=== PATIENT | female | born 1935 | race Caucasian/White ===

== ENCOUNTER 2019-02-15 08:17 | Inpatient (IN) ==
[2019-02-15] MEDS ORDERED: Ibuprofen 800 MG TABLET PO PRN (20:47)
[2019-02-15] MEDS ORDERED: Nitroglycerin 0.4 MG TAB.SUBL SL PRN (20:47)
[2019-02-15] MEDS ORDERED: Mag Hydrox/Al Hydrox/Simeth 30 ML UDC PO PRN (20:50)
[2019-02-15] MEDS ORDERED: Ondansetron ODT 4 MG TAB.RAPDIS SL PRN (20:52)
[2019-02-15] MEDS ORDERED: Lactulose Oral Soln 20 GM/30 ML UDC PO PRN (20:53)
[2019-02-15] MEDS: ALPRAZolam 1 MG TABLET PO PRN (22:52)
[2019-02-16 05:51] LABS: Basophils # 0.1 K/mcL (0.0-0.2); Basophils % 0.5 %; Eosinophils # 0.2 K/mcL (0.0-0.6); Hematocrit 34.7 % (35.3-44.9); Hemoglobin 11.1 g/dL (11.5-15.4); Immature Granulocytes % 9.9 % (0-4); Lymphocytes # 2.3 K/mcL (0.6-4.6); Lymphocytes % 14.5 %; Mean Corpuscular Hemoglobin 29.4 pg (28.0-33.3); Mean Platelet Volume 10.2 fL (9.4-12.4); Monocytes # 1.1 K/mcL (0.0-1.3); Neutrophils # 10.7 K/mcL (1.6-8.9); Platelet Count 211 K/mcL (140-400); Red Blood Count 3.77 M/mcL (3.82-4.97); Red Cell Distribution Width 13.5 % (11.5-14.5); Segmented Neutrophils % 67.1 %
[2019-02-16] MEDS: *HR* Enoxaparin 40 MG/0.4 ML SYRINGE SQ SCH (06:03)
[2019-02-16 06:05] LABS: Alanine Aminotransferase 28 Units/L (7-52); Aspartate Amino Transferase 29 Units/L (13-39); Bilirubin,Total 0.3 mg/dL (0.3-1.0); Carbon Dioxide 32 mEq/L (23-29); Glucose 87 mg/dL (70-105); Magnesium 1.8 mg/dL (1.6-2.6); Potassium 2.9 mEq/L (3.5-5.1); Sodium 143 mEq/L (136-145)
[2019-02-16 06:08] LABS: Albumin 2.9 g/dL (3.5-5.7); Albumin/Globulin Ratio 1.5 (1.1-2.2); Alkaline Phosphatase 72 Units/L (34-104); BUN/Creatinine Ratio 16 (6-26); Blood Urea Nitrogen 14 mg/dL (8-23); Calcium 8.6 mg/dL (8.6-10.3); Chloride 106 mEq/L (98-107); Globulin 1.9 g/dL (2.4-3.5); Osmolality,Calculated 296 (280-300); Total Protein 4.8 g/dL (6.4-8.9); eGFR For African Americans > 60 (> 60); eGFR For Non-African Americans > 60 (> 60)
[2019-02-16] MEDS: Cholecalciferol (D-3) 1,000 UNIT (25MCG) TABLET PO SCH (08:09)
[2019-02-16] MEDS: Multivit/Ca/Min/Fe/FA 1 TAB TABLET PO SCH (08:09)
[2019-02-16] MEDS: predniSONE 20 MG TABLET PO SCH (08:10)
[2019-02-16] MEDS: Spironolactone 25 MG TABLET PO SCH (08:10)
[2019-02-16] MEDS: (Fluticasone Furoate [Arnuity Ellipta] 1 PUFF) IH SCH (08:10)
[2019-02-16] MEDS: (Tiotropium Br/Olodaterol Hcl [Stiolto Respimat Inhal) IH SCH (08:10)
[2019-02-16] MEDS: ALPRAZolam 1 MG TABLET PO PRN ×2 (08:24→22:26)
[2019-02-16] MEDS ORDERED: 0.9 % Sodium Chloride 250 ML ONE (08:43)
[2019-02-16] MEDS ORDERED: 0.9 % Sodium Chloride 500 ML ONE (11:16)
--- NOTE | 2019-02-16 12:59 | Internal Med History&Physical ---
Date of Encounter: 02/16/19 Time of Encounter: 11:00 Assessment and Plan (1) Weakness Current visit: Yes Status: Acute This is apparently worse by her recent pneumonia and infection as well as time spent in ICU. She will receive therapies and assessments to return to her normal function. (2) CHF (congestive heart failure) Current visit: No Status: Acute This is apparently well compensated. Qualifiers: Heart failure type: diastolic Heart failure chronicity: chronic Qualified Code(s): I50.32 - Chronic diastolic (congestive) heart failure (3) Obstructive sleep apnea Current visit: Yes Status: Acute This is a presumptive diagnosis and will need a formal polysomnogram after discharge. (4) COPD (chronic obstructive pulmonary disease) with emphysema Current visit: Yes Status: Acute As above, she has been oxygen dependent. She has used more oxygen at home and prescribed (3.5 versus 2 L). She is on a steroid dose of 40 mg prednisone daily but we will see if we can find out what her weaning plan is to be. Qualifiers: Emphysema type: unspecified Qualified Code(s): J43.9 - Emphysema, unspecified Internal Medicine - H&P: HPI Admitted From: Hospital to Hospital Transfer Plans for Post Hospital Care: Home History of present illness: Ms. Streeter is a 83 year old female with a history of heart failure, COPD on chronic oxygen, who developed respiratory symptoms and was admitted with COPD exacerbation, pneumonia, septicemia. She was in ICU at [facility] and did better after antibiotics and steroids. She is now feeling weak in his brought here for strengthening and therapy to return to function. Allergies include amoxicillin, ciprofloxacin, clavulanic acid, hydrocodone. She has a history of COPD and CHF as well has apparent sleep apnea. She uses oxygen at 3.5 L, nightly, at home. She is followed by Dr. alfaro, apparently, a director dermatology. She also has a history of coronary disease with stent placements 2003. She had an DC in 2009 and subsequent stent placement at that time. Her most recent stress test was about 2 years ago and was normal. She denies recent chest pain or pressure. She is followed by a plant associate, Dr. Avalos, in [place]. She apparently had oxygen monitoring which showed desaturation, while hospitalized. She was told that she needs to have a formal sleep study soon. She had an echocardiogram while at [facility] and the ejection f raction was normal. Past surgeries have included bilateral cataract extractions, cholecystectomy, h ysterectomy but not BSO, right total knee replacement by Dr. Parra. She is edentulous but wears only upper plate dentures. She has dry skin. She has always "had to watch my swallowing." She is not able to further describe. She has had some abdominal tenderness since being hospitalized but denies constipation. She has occasionally had diarrhea, since receiving antibiotics but this is not consistent. No melena or hematochezia. She has remote urinary tract infections but none recently. 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 She has chronic knee problems after her surgery, as well. This is affecting her gait. She has a history of anxiety disorder to the point that she frequently has tremors which are related to anxiety. She smoked for approximately 40 years, 1 pack per day but stopped in 2011. She drank mixed drinks occasionally until about 5 years ago. She is for 5 years and lives with her daughter. 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 Patient has no complaint of chest discomfort, dyspnea, orthopnea, breathing problems, palpitations, nausea or vomiting, constipation or diarrhea, other changes in bowel habits, heartburn, difficulty with urination, kidney problems or kidney stones, fevers chills or sweats, rash or itching, seizures, headache or lightheadedness, heat or cold intolerance, blood problems or anemia, or other new complaints, except as mentioned above. Review of systems is otherwise negative. Past Med Surg Social Fam HX - Past Medical History Medical history: arthritis, CHF, COPD, DVT, GERD, hyperlipidemia, myocardial infarction Additional medical history: 2 stents Psychiatric history: anxiety, depression - Past Surgical History Surgical History: cholecystectomy, hysterectomy, knee replacement Additional surgical history: tubal, right knee replacement - Social History Smoking Status: Former smoker Smokeless Tobacco Status: No Alcohol use: none Drug use: none - Family History Father Living Status: Hx Family Cardiac Disorders: Yes Mother Living Status: Hx Family Cardiac Disorders: Yes Brother Living Status: Still Living Hx Family Cardiac Disorders: Yes Internal Medicine - H&P: Meds ALPRAZolam [Xanax 1 MG Tablet] 1 mg PO BID PRN 02/10/19 [History] Albuterol Sulfate [Ventolin Hfa] 2 puff IH Q4H PRN 02/10/19 [History] Atorvastatin Calcium 80 mg PO DAILY 02/10/19 [History] Cholecalciferol (D-3) [Vitamin D] 2,000 unit PO DAILY 02/10/19 [History] Duloxetine HCl [Cymbalta] 60 mg PO BID 02/10/19 [History] Fluticasone Furoate [Arnuity Ellipta] 1 puff IH DAILY 02/10/19 [History] Ibuprofen [Ibu] 800 mg PO TID PRN 02/10/19 [History] Lactulose 30 ml PO BID PRN 02/10/19 [History] Metoprolol [Lopressor] 25 mg PO BID 02/10/19 [History] Montelukast [Singulair] 10 mg PO DAILY 02/10/19 [History] Multivitamin [Daily Multiple Vitamin] 1 each PO DAILY 02/10/19 [History] Nitroglycerin [Nitrostat] 0.4 mg SL Q5MIN PRN 02/10/19 [History] Omeprazole [PriLOSEC] 20 mg PO DAILY 02/10/19 [History] Spironolactone [Aldactone] 25 mg PO DAILY 02/10/19 [History] Tiotropium Br/Olodaterol HCl [Stiolto Respimat Inhal [place]] 2 puff IH DAILY 02/10/19 [History] predniSONE [PredniSONE] 40 mg PO DAILY 7 Days #14 tablet 02/15/19 [Rx] Allergy/AdvReac Type Severity Reaction Status Date / Time acetaminophen [From Vicodin] AdvReac Vomiting Verified 02/10/19 22:21 Amoxicillin [From Augmentin] AdvReac Abdominal Verified 02/10/19 22:21 Pain ciprofloxacin AdvReac Vomiting Verified 02/10/19 22:21 clavulanic acid AdvReac Abdominal Verified 02/10/19 22:21 [From Augmentin] Pain hydrocodone [From Vicodin] AdvReac Vomiting Verified 02/10/19 22:21 - Constitutional Vitals: Temp Pulse Resp BP Pulse Ox 98.2 F 80 17 125/76 94 02/16/19 08:24 02/16/19 08:24 02/16/19 08:24 02/16/19 08:24 02/16/19 08:40 Exam: Examination: (Except as mentioned above): General: In no apparent distress, alert and oriented 3. Head: Atraumatic and normocephalic. Eyes: Extraocular muscles are intact, pupils equal round and reactive to light and accommodation. Sclerae anicteric. Ears: External ears are normal to inspection and hearing is grossly normal. Nose: Patent without lesion noted. Mouth: No intraoral lesions seen. Edentulous with upper plate dentures in place. Neck: Supple with trachea midline. There is no thyromegaly or adenopathy and carotids are 2+ without bruit heard. Respiratory: No use of accessory muscles. Lungs are clear throughout. Normal airflow. Cardiovascular: Regular rate and rhythm without murmur appreciated. Abdomen: Bowel sounds are normal. No hepatosplenomegaly masses but there is mild diffuse tenderness without guarding or rebound. Obese and therefore difficult to palpate deeply. Extremities: No cyanosis clubbing or edema. Neurological: A and O 3. Cranial nerves II through XII are intact. No focal deficits and no abnormal movements or postures. Skin: Warm and non-diaphoretic with no lesions noted. Breasts, pelvic and rectal: Not examined. Internal Med - H&P Results - Labs CBC & Chem 7: 02/16/19 05:15 02/16/19 05:15 Labs: Short CBC 02/16/19 Range/Units 05:15 WBC 16.0 H (4.3-11.1) K/mcL Hgb 11.1 L (11.5-15.4) g/dL Hct 34.7 L (35.3-44.9) % Plt Count 211 (140-400) K/mcL Neutrophils # 10.7 H (1.6-8.9) K/mcL BMP 02/16/19 05:15 Sodium 143 Potassium 2.9 L Chloride 106 Carbon Dioxide 32 H BUN 14 Creatinine 0.85 Glucose 87 Calcium 8.6 Liver Function 02/16/19 Range/Units 05:15 Total Bilirubin 0.3 (0.3-1.0) mg/dL AST 29 (13-39) Units/L ALT 28 (7-52) Units/L Alkaline Phosphatase 72 (34-104) Units/L Albumin 2.9 L (3.5-5.7) g/dL
[2019-02-16] MEDS: Acetaminophen 325 MG TABLET PO PRN (22:26)
[2019-02-17] MEDS: *HR* Enoxaparin 40 MG/0.4 ML SYRINGE SQ SCH (05:11)
[2019-02-17 05:49] LABS: Potassium 3.9 mEq/L (3.5-5.1)
[2019-02-17 05:50] LABS: BUN/Creatinine Ratio 15 (6-26); Blood Urea Nitrogen 12 mg/dL (8-23); Calcium 8.7 mg/dL (8.6-10.3); Carbon Dioxide 31 mEq/L (23-29); Chloride 106 mEq/L (98-107); Glucose 82 mg/dL (70-105); Osmolality,Calculated 287 (280-300); Sodium 139 mEq/L (136-145); eGFR For African Americans > 60 (> 60); eGFR For Non-African Americans > 60 (> 60)
[2019-02-17] MEDS: (Fluticasone Furoate [Arnuity Ellipta] 1 PUFF) IH SCH (09:14)
[2019-02-17] MEDS: (Tiotropium Br/Olodaterol Hcl [Stiolto Respimat Inhal) IH SCH (09:14)
[2019-02-17] MEDS: Spironolactone 25 MG TABLET PO SCH (09:20)
[2019-02-17] MEDS: Cholecalciferol (D-3) 1,000 UNIT (25MCG) TABLET PO SCH (09:20)
[2019-02-17] MEDS: predniSONE 20 MG TABLET PO SCH (09:20)
[2019-02-17] MEDS: Multivit/Ca/Min/Fe/FA 1 TAB TABLET PO SCH (09:20)
[2019-02-17] MEDS: ALPRAZolam 1 MG TABLET PO PRN ×2 (09:30→22:29)
--- NOTE | 2019-02-17 16:13 | Internal Med Progress Note ---
Date of Encounter: 02/17/19 Time of Encounter: 16:11 - Assessment and plan (1) Weakness Current Visit: Yes Status: Acute Assessment and plan: Therapy will begin in full swing, tomorrow. (2) CHF (congestive heart failure) Current Visit: No Status: Acute Assessment and plan: Clinically stable without signs of heart failure Qualifiers: Heart failure type: diastolic Heart failure chronicity: chronic Qualified Code(s): I50.32 - Chronic diastolic (congestive) heart failure (3) Obstructive sleep apnea Current Visit: Yes Status: Acute Assessment and plan: We will continue on current regimen. (4) COPD (chronic obstructive pulmonary disease) with emphysema Current Visit: Yes Status: Acute Assessment and plan: Clinically improving on 40 mg prednisone and we will need to decide about tapering, based on referral paperwork. Qualifiers: Emphysema type: unspecified Qualified Code(s): J43.9 - Emphysema, unspecified - Subjective Interval history: Patient states that she has decreased frequency of bowel movements and only minimal crampy abdominal pain. She is appreciating her russell of rest. She notes that she had a couple of episodes of March production of phlegm with a cough and then she felt better, thereafter. She also had a breathing treatment and this helped. Overall, her breathing is much better. Patient has no complaint of chest discomfort, dyspnea, orthopnea, palpitations, nausea or vomiting, constipation or diarrhea, other changes in bowel habits, difficulty with urination, rash or itching, or other new complaints, except as mentioned above. Review of systems is otherwise negative. I discussed management of patient's care with nursing staff. - Constitutional Vitals: Temp Pulse Resp BP Pulse Ox 98.1 F 78 19 111/62 95 02/17/19 08:27 02/17/19 08:27 02/17/19 15:18 02/17/19 08:27 02/17/19 15:18 Exam: Examination: (Except as mentioned above): General: In no apparent distress. Alert and oriented 3. Nondiaphoretic. Head: Atraumatic and normocephalic. Respiratory: No use of accessory muscles. She has rare sonorous rhonchi without rales or egophony. Nearly normal airflow. Cardiovascular: Regular rate and rhythm without murmur appreciated. Abdomen: Bowel sounds are normal. No hepatosplenomegaly mass or tenderness appreciated. Obese and therefore difficult to palpate deeply. Extremities: No cyanosis clubbing or edema. Skin: Warm and non-diaphoretic with no new lesions noted. Internal Medicine: Result - Labs CBC & Chem 7: 02/16/19 05:15 02/17/19 05:09 Labs: BMP 02/17/19 05:09 Sodium 139 Potassium 3.9 D Chloride 106 Carbon Dioxide 31 H BUN 12 Creatinine 0.80 Glucose 82 Calcium 8.7 Consult Discharge Plan - Plan Referrals: Deacon Castro MD [Primary Care Provider] -
[2019-02-17] MEDS: Acetaminophen 325 MG TABLET PO PRN (22:29)
[2019-02-18] MEDS: *HR* Enoxaparin 40 MG/0.4 ML SYRINGE SQ SCH (06:01)
[2019-02-18] MEDS: Spironolactone 25 MG TABLET PO SCH (09:10)
[2019-02-18] MEDS: Cholecalciferol (D-3) 1,000 UNIT (25MCG) TABLET PO SCH (09:10)
[2019-02-18] MEDS: Multivit/Ca/Min/Fe/FA 1 TAB TABLET PO SCH (09:10)
[2019-02-18] MEDS: predniSONE 20 MG TABLET PO SCH (09:10)
[2019-02-18] MEDS: ALPRAZolam 1 MG TABLET PO PRN ×2 (09:10→21:38)
[2019-02-18] MEDS: (Fluticasone Furoate [Arnuity Ellipta] 1 PUFF) IH SCH (09:16)
[2019-02-18] MEDS: (Tiotropium Br/Olodaterol Hcl [Stiolto Respimat Inhal) IH SCH (09:16)
--- NOTE | 2019-02-18 11:52 | Internal Med Progress Note ---
Date of Encounter: 02/18/19 Time of Encounter: 11:50 - Assessment and plan (1) Weakness Current Visit: Yes Status: Acute Assessment and plan: This persists we will continue with therapy. Patient once go home and I told her to discuss this at our multidisciplinary meeting. (2) CHF (congestive heart failure) Current Visit: No Status: Acute Assessment and plan: No current findings. Qualifiers: Heart failure type: diastolic Heart failure chronicity: chronic Qualified Code(s): I50.32 - Chronic diastolic (congestive) heart failure (3) Obstructive sleep apnea Current Visit: Yes Status: Acute Assessment and plan: Stable. (4) COPD (chronic obstructive pulmonary disease) with emphysema Current Visit: Yes Status: Acute Assessment and plan: Clinically stable without exacerbation. Qualifiers: Emphysema type: unspecified Qualified Code(s): J43.9 - Emphysema, unspecified - Subjective Interval history: Breathing is better even than yesterday. She has some shortness of breath when she works with therapy. However, she has no cough and otherwise is doing well. Bowels have normalized. Patient has no complaint of chest discomfort, dyspnea, orthopnea, palpitations, nausea or vomiting, constipation or diarrhea, other changes in bowel habits, difficulty with urination, rash or itching, or other new complaints, except as mentioned above. Review of systems is otherwise negative. I discussed management of patient's care with nursing staff. - Constitutional Vitals: Temp Pulse Resp BP Pulse Ox 98.1 F 78 15 115/61 99 02/18/19 07:16 02/18/19 10:24 02/18/19 10:24 02/18/19 10:24 02/18/19 10:24 Exam: Examination: (Except as mentioned above): General: In no apparent distress. Alert and oriented 3. Nondiaphoretic. Head: Atraumatic and normocephalic. Respiratory: No use of accessory muscles. Lungs are clear throughout, with the exception of rare rales, scattered. Normal airflow. Cardiovascular: Regular rate and rhythm without murmur appreciated. Abdomen: Bowel sounds are normal. No hepatosplenomegaly mass or tenderness appreciated. Obese and therefore difficult to palpate deeply. Extremities: No cyanosis clubbing or edema. Skin: Warm and non-diaphoretic with no new lesions noted. Internal Medicine: Result - Labs CBC & Chem 7: 02/16/19 05:15 02/17/19 05:09 Consult Discharge Plan - Plan Referrals: Deacon Castro MD [Primary Care Provider] -
[2019-02-18] MEDS: Acetaminophen 325 MG TABLET PO PRN (21:38)
[2019-02-19] MEDS: *HR* Enoxaparin 40 MG/0.4 ML SYRINGE SQ SCH (05:03)
[2019-02-19] MEDS: (Fluticasone Furoate [Arnuity Ellipta] 1 PUFF) IH SCH (09:33)
[2019-02-19] MEDS: (Tiotropium Br/Olodaterol Hcl [Stiolto Respimat Inhal) IH SCH (09:33)
[2019-02-19] MEDS: Cholecalciferol (D-3) 1,000 UNIT (25MCG) TABLET PO SCH (09:36)
[2019-02-19] MEDS: Multivit/Ca/Min/Fe/FA 1 TAB TABLET PO SCH (09:37)
[2019-02-19] MEDS: predniSONE 20 MG TABLET PO SCH (09:37)
[2019-02-19] MEDS: ALPRAZolam 1 MG TABLET PO PRN ×2 (09:37→19:39)
[2019-02-19] MEDS: Spironolactone 25 MG TABLET PO SCH (09:37)
--- NOTE | 2019-02-19 10:30 | Internal Med Progress Note ---
Date of Encounter: 02/19/19 Time of Encounter: 10:27 - Assessment and plan (1) CHF (congestive heart failure) Current Visit: Yes Status: Acute Assessment and plan: No acute issues. Patient continues to have dyspnea with exertion, but in no apparent distress. She continues to have fine basilar rales heard and minimal pedal edema. We will continue with current therapy. Possible discharge later in the week. Qualifiers: Heart failure type: diastolic Heart failure chronicity: chronic Qualified Code(s): I50.32 - Chronic diastolic (congestive) heart failure (2) CAD (coronary artery disease) Current Visit: Yes Status: Acute Assessment and plan: No acute issues. Patient denies any chest palpitations or discomforts. We will continue with current medications. Qualifiers: Coronary Disease-Associated Artery/Lesion type: [place] artery [place] vs. transplanted heart: [place] heart Associated angina: without angina Qualified Code(s): I25.10 - Atherosclerotic heart disease of [place] coronary artery without angina pectoris (3) Leukocytosis Current Visit: Yes Status: Chronic Assessment and plan: Patient continues with leukocytosis secondary to cortical steroid use. Most recent WBC was 16.0 Qualifiers: Leukocytosis type: unspecified Qualified Code(s): D72.829 - Elevated white blood cell count, unspecified (4) COPD (chronic obstructive pulmonary disease) with emphysema Current Visit: Yes Status: Chronic Assessment and plan: No acute issues at this time. Patient continues with dyspnea on exertion. Patient continues with fine rales her to basilar marcelo. Respiratory effort is relaxed while at rest. We will continue with current medications and patient is to continue with therapy Qualifiers: Emphysema type: unspecified Qualified Code(s): J43.9 - Emphysema, unspecified - Time Spent With Patient less than 15 minutes - Subjective Interval history: Patient appears relaxed and currently denies any discomforts or shortness of breath. Patient states she continues to become winded during therapy. Patient states that she does have a productive cough but has produced thick white phlegm - Constitutional Vitals: Temp Pulse Resp BP Pulse Ox 98.3 F 73 14 109/54 98 02/19/19 09:00 02/19/19 09:00 02/19/19 09:00 02/19/19 09:00 02/19/19 09:00 General appearance: Present: A&O X 3, pleasant - Head Head exam: Present: atraumatic, normocephalic - Eye Eye exam: Present: PERRL, conjuntiva pink, sclera anicteric Pupils: Present: PERRL - Neck Neck exam general surgery: Present: supple, trachea midline. Absent: lymphaden opathy - Respiratory Respiratory exam: Present: CTAB, rales. Absent: accessory muscle use, rhonchi, wheezes Additional comments: Respiratory effort appears relaxed while at rest. Lungs are clear throughout upper marcelo but noted fine scattered rales throughout lower basilar marcelo. No productive cough noted during exam. - Cardiovascular Cardiovascular exam: Present: RRR, +S1, +S2. Absent: diastolic murmur, gallop, rubs, systolic murmur - GI/Abdominal GI/Abdominal exam: Present: normal bowel sounds, soft, no peritoneal signs. Absent: distended, tenderness - Extremities Exam Extremities exam: Present: pedal edema, warm, radial pulses palpable and symmetrical. Absent: calf tenderness, cyanotic Additional comments: Slight non-pitting pedal edema - Neurological Exam Neurological exam: Present: CN II-XII intact, oriented X3, no focal deficits. Absent: pronater drift, facial droop, speech deficit - Skin Skin exam: Present: dry, intact Internal Medicine: Result - Labs CBC & Chem 7: 02/16/19 05:15 02/17/19 05:09 Consult Discharge Plan - Plan Referrals: Deacon Castro MD [Primary Care Provider] -
[2019-02-20] MEDS: *HR* Enoxaparin 40 MG/0.4 ML SYRINGE SQ SCH (06:01)
[2019-02-20] MEDS: ALPRAZolam 1 MG TABLET PO PRN ×2 (08:50→20:46)
[2019-02-20] MEDS: Spironolactone 25 MG TABLET PO SCH (08:50)
[2019-02-20] MEDS: (Fluticasone Furoate [Arnuity Ellipta] 1 PUFF) IH SCH (08:51)
[2019-02-20] MEDS: Cholecalciferol (D-3) 1,000 UNIT (25MCG) TABLET PO SCH (08:51)
[2019-02-20] MEDS: predniSONE 20 MG TABLET PO SCH (08:51)
[2019-02-20] MEDS: Multivit/Ca/Min/Fe/FA 1 TAB TABLET PO SCH (08:51)
[2019-02-20] MEDS: (Tiotropium Br/Olodaterol Hcl [Stiolto Respimat Inhal) IH SCH (08:51)
--- NOTE | 2019-02-20 10:03 | Internal Med Progress Note ---
Date of Encounter: 02/20/19 Time of Encounter: 10:01 - Assessment and plan (1) CHF (congestive heart failure) Current Visit: Yes Status: Acute Assessment and plan: No acute issues. Patient continues to have dyspnea with exertion, but in no apparent distress. She continues to have fine basilar rales heard and minimal pedal edema. We will continue with current therapy. Possible discharge later in the week. Qualifiers: Heart failure type: diastolic Heart failure chronicity: chronic Qualified Code(s): I50.32 - Chronic diastolic (congestive) heart failure (2) CAD (coronary artery disease) Current Visit: Yes Status: Acute Assessment and plan: No acute issues. Patient denies any chest palpitations or discomforts. We will continue with current medications. Qualifiers: Coronary Disease-Associated Artery/Lesion type: [place] artery [place] vs. transplanted heart: [place] heart Associated angina: without angina Qualified Code(s): I25.10 - Atherosclerotic heart disease of [place] coronary artery without angina pectoris (3) Leukocytosis Current Visit: Yes Status: Chronic Assessment and plan: Patient continues with leukocytosis secondary to cortical steroid use. Most recent WBC was 16.0 Qualifiers: Leukocytosis type: unspecified Qualified Code(s): D72.829 - Elevated white blood cell count, unspecified (4) COPD (chronic obstructive pulmonary disease) with emphysema Current Visit: Yes Status: Chronic Assessment and plan: No acute issues at this time. Patient continues with dyspnea on exertion. Patient continues with fine rales her to basilar marcelo. Respiratory effort is relaxed while at rest. We will continue with current medications and patient is to continue with therapy Qualifiers: Emphysema type: unspecified Qualified Code(s): J43.9 - Emphysema, unspecified - Time Spent With Patient less than 15 minutes - Subjective Interval history: Patient appears relaxed and currently denies any discomforts or shortness of breath. Patient states she continues to become winded during therapy, but in no apparent distress.. Patient states that she does have a productive cough but has produced thick white phlegm. Patient states that she is anxious to be discharged to home. - Constitutional Vitals: Temp Pulse Resp BP Pulse Ox 97.8 F 68 16 97/56 91 02/20/19 08:28 02/20/19 08:28 02/20/19 08:28 02/20/19 08:28 02/20/19 08:59 General appearance: Present: A&O X 3, pleasant - Head Head exam: Present: atraumatic, normocephalic - Eye Eye exam: Present: PERRL, conjuntiva pink, sclera anicteric Pupils: Present: PERRL - Neck Neck exam general surgery: Present: supple, trachea midline. Absent: lymphadenopathy - Respiratory Respiratory exam: Present: CTAB, rales. Absent: accessory muscle use, rhonchi, wheezes Additional comments: Lungs remain clear throughout upper marcel[place] but noted continued fine posterior basilar rales. Respiratory effort appears relaxed while at rest. No productive cough noted during exam - Cardiovascular Cardiovascular exam: Present: RRR, +S1, +S2. Absent: diastolic murmur, gallop, rubs, systolic murmur - GI/Abdominal GI/Abdominal exam: Present: normal bowel sounds, soft, no peritoneal signs. Absent: distended, tenderness - Extremities Exam Extremities exam: Present: pedal edema, warm, radial pulses palpable and symmetrical. Absent: calf tenderness, cyanotic Additional comments: Slight +1 pedal edema - Neurological Exam Neurological exam: Present: CN II-XII intact, oriented X3, no focal deficits. Absent: pronater drift, facial droop, speech deficit - Skin Skin exam: Present: dry, intact Internal Medicine: Result - Labs CBC & Chem 7: 02/16/19 05:15 02/17/19 05:09 Consult Discharge Plan - Plan Referrals: Deacon Castro MD [Primary Care Provider] -
[2019-02-21] MEDS: *HR* Enoxaparin 40 MG/0.4 ML SYRINGE SQ SCH (05:39)
[2019-02-21 07:28] VITALS: BP 118/64
[2019-02-21] MEDS: predniSONE 20 MG TABLET PO SCH (09:31)
[2019-02-21] MEDS: Multivit/Ca/Min/Fe/FA 1 TAB TABLET PO SCH (09:31)
[2019-02-21] MEDS: ALPRAZolam 1 MG TABLET PO PRN (09:34)
[2019-02-21] MEDS: Cholecalciferol (D-3) 1,000 UNIT (25MCG) TABLET PO SCH (09:34)
[2019-02-21] MEDS: Spironolactone 25 MG TABLET PO SCH (09:34)
[2019-02-21] MEDS: (Fluticasone Furoate [Arnuity Ellipta] 1 PUFF) IH SCH (09:36)
[2019-02-21] MEDS: (Tiotropium Br/Olodaterol Hcl [Stiolto Respimat Inhal) IH SCH (09:36)
--- NOTE | 2019-02-21 10:07 | Discharge Summary ---
Date of Encounter: 02/21/19 Time of Encounter: 10:03 - Discharge Diagnosis (1) CHF (congestive heart failure) Priority: Primary Status: Acute Comments: Patient was admitted for exacerbation of CHF, COPD and pneumonia. Patient c ontinues to have dyspnea on exertion but is at her baseline for endurance. Lungs continue with fine basilar rales. Respiratory effort is relaxed while at rest. Patient is to continue her physical therapy through home health services. Patient recommended to follow up with her PCP and billing clinician after discharge Qualifiers: Heart failure type: diastolic Heart failure chronicity: chronic Qualified Code(s): I50.32 - Chronic diastolic (congestive) heart failure (2) CAD (coronary artery disease) Priority: Secondary Status: Acute Comments: No acute issues. Patient denies any chest discomforts or palpitations. We will continue on current medications. Qualifiers: Coronary Disease-Associated Artery/Lesion type: [place] artery [place] vs. transplanted heart: beaver heart Associated angina: without angina Qualified Code(s): I25.10 - Atherosclerotic heart disease of [place] coronary artery without angina pectoris (3) Leukocytosis Priority: Secondary Status: Chronic Comments: Patient continues with leukocytosis secondary to cortical steroid use. Patient will continue on cortical steroids after discharge on a tapering dose and is to follow-up with her PCP for further management. Qualifiers: Leukocytosis type: unspecified Qualified Code(s): D72.829 - Elevated white blood cell count, unspecified (4) COPD (chronic obstructive pulmonary disease) with emphysema Priority: Secondary Status: Chronic Comments: Issue was admitted with exacerbation of her COPD and CHF. Patient continues to have dyspnea on exertion but today is back to her baseline for endurance. No productive cough. Continued fine rales throughout [place]. Denies any dyspnea while at rest. We will continue on current medications and bronchodilators and is to follow-up with her PCP after discharge. Patient is continue physical therapy through home health services Qualifiers: Emphysema type: unspecified Qualified Code(s): J43.9 - Emphysema, unspecified Hospital course: Ms. Streeter is a 83 year old female, who was admitted at an [facility] for exacerbation of COPD and CHF. Patient at that time was also treated for pneumonia. She was transferred to this facility for further rehabilitation due to generalized weakness and dyspnea on exertion. Patient's pulmonary issues have improved during her stay. She continues to have fine rales throughout the [place] but is without dyspnea while at rest. Patient continues to have dyspnea on exertion but states that it is improved greatly since her admission. Afebrile. Patient continues on antibiotics and will be discharged with a prescription to finish out her run. Patient also be discharged on cortical steroids with a tapering dose and a prescription provided. Patient is to continue her physical therapy to outpatient services. Patient was recommended to follow up with her PCP in one week and her billing clinician Discharge discussed with: patient Time spent discussing smoking cessation with patient: 3 to 10 minutes - Time Spent with Patient Total time spent providing and/or coordinating discharge services: Time spent: Less than 30 minutes - Discharge Medications Prescriptions: No Action Metoprolol [Lopressor] 25 mg PO BID Duloxetine HCl [Cymbalta] 60 mg PO BID Spironolactone [Aldactone] 25 mg PO DAILY ALPRAZolam [Xanax 1 MG Tablet] 1 mg PO BID PRN PRN Reason: Anxiety Nitroglycerin [Nitrostat] 0.4 mg SL Q5MIN PRN PRN Reason: Chest Pain Omeprazole [PriLOSEC] 20 mg PO DAILY Ibuprofen [Ibu] 800 mg PO TID PRN PRN Reason: Pain Atorvastatin Calcium 80 mg PO DAILY Albuterol Sulfate [Ventolin Hfa] 2 puff IH Q4H PRN PRN Reason: Shortness Of Breath Montelukast [Singulair] 10 mg PO DAILY Cholecalciferol (D-3) [Vitamin D] 2,000 unit PO DAILY Multivitamin [Daily Multiple Vitamin] 1 each PO DAILY Fluticasone Furoate [Arnuity Ellipta] 1 puff IH DAILY Tiotropium Br/Olodaterol HCl [Stiolto Respimat Inhal [place]] 2 puff IH DAILY Lactulose 30 ml PO BID PRN PRN Reason: Constipation predniSONE [PredniSONE] 40 mg PO DAILY 7 Days #14 tablet Home Medications: ALPRAZolam [Xanax 1 MG Tablet] 1 mg PO BID PRN 02/10/19 [History] Albuterol Sulfate [Ventolin Hfa] 2 puff IH Q4H PRN 02/10/19 [History] Atorvastatin Calcium 80 mg PO DAILY 02/10/19 [History] Cholecalciferol (D-3) [Vitamin D] 2,000 unit PO DAILY 02/10/19 [History] Duloxetine HCl [Cymbalta] 60 mg PO BID 02/10/19 [History] Fluticasone Furoate [Arnuity Ellipta] 1 puff IH DAILY 02/10/19 [History] Ibuprofen [Ibu] 800 mg PO TID PRN 02/10/19 [History] Lactulose 30 ml PO BID PRN 02/10/19 [History] Metoprolol [Lopressor] 25 mg PO BID 02/10/19 [History] Montelukast [Singulair] 10 mg PO DAILY 02/10/19 [History] Multivitamin [Daily Multiple Vitamin] 1 each PO DAILY 02/10/19 [History] Nitroglycerin [Nitrostat] 0.4 mg SL Q5MIN PRN 02/10/19 [History] Omeprazole [PriLOSEC] 20 mg PO DAILY 02/10/19 [History] Spironolactone [Aldactone] 25 mg PO DAILY 02/10/19 [History] Tiotropium Br/Olodaterol HCl [Stiolto Respimat Inhal [place]] 2 puff IH DAILY 02/10/19 [History] predniSONE [PredniSONE] 40 mg PO DAILY 7 Days #14 tablet 02/15/19 [Rx] Allergies/Adverse Reactions: Allergy/AdvReac Type Severity Reaction Status Date / Time acetaminophen [From Vicodin] AdvReac Vomiting Verified 02/10/19 22:21 Amoxicillin [From Augmentin] AdvReac Abdominal Verified 02/10/19 22:21 Pain ciprofloxacin AdvReac Vomiting Verified 02/10/19 22:21 clavulanic acid AdvReac Abdominal Verified 02/10/19 22:21 [From Augmentin] Pain hydrocodone [From Vicodin] AdvReac Vomiting Verified 02/10/19 22:21 Date of admission: 02/15/19 19:43 Primary care physician: Deacon Castro MD Consults: 02/15/19 20:56 Consult to Occupational Therapy [CONS] Routine Comment: Eval and Treat Reason for Consult: Eval and Treat Does patient have active BEDREST order?: No Is patient medically & hemodynamically stable?: Yes Patient assessed for mobility or mobilized this visit?: No Consult to Physical Therapy [CONS] Routine Comment: Eval and Treat Reason for Consult: Eval and Treat Does patient have active BEDREST order?: No Is patient medically & hemodynamically stable?: Yes Patient assessed for mobility or mobilized this visit?: No Consult to Recreational Therapy [CONS] Routine Comment: Consult to Wire Transfer Clerk [CONS] Routine Reason for SW Consult: Discharge Planning 02/15/19 21:00 Consult to Physical Medicine/Rehab [CONS] Routine Reason for Consult: Please evaluate and manage therapies' guidelines and recommend pathway to reconditioning. Call Completed: No Discharging clinician: Bill Stapleton - Constitutional Vitals: Temp Pulse Resp BP Pulse Ox 98.2 F 67 16 118/64 98 02/21/19 07:27 02/21/19 07:27 02/21/19 07:27 02/21/19 07:27 02/21/19 07:27 General appearance: Present: A&O X 3, pleasant - Head Head exam: Present: atraumatic, normocephalic - Eye Eye exam: Present: PERRL, conjuntiva pink, sclera anicteric Pupils: Present: PERRL - Neck Neck exam general surgery: Present: supple, trachea midline. Absent: lymphadenopathy - Respiratory Respiratory exam: Present: CTAB, rales. Absent: accessory muscle use, rhonchi, wheezes Additional comments: Patient continues with fine scattered rales throughout lower third of her lung [place] but otherwise is clear to auscultation. History effort appears relaxed while at rest. No productive cough noted. - Cardiovascular Cardiovascular exam: Present: irregular rhythm, RRR, +S1, +S2. Absent: diastolic murmur, gallop, rubs, systolic murmur - GI/Abdominal GI/Abdominal exam: Present: normal bowel sounds, soft, no peritoneal signs. Absent: distended, tenderness - Extremities Exam Extremities exam: Present: warm, radial pulses palpable and symmetrical. Absent: calf tenderness, cyanotic, pedal edema Additional comments: Slight nonpitting edema noted to bilateral lower legs - Neurological Exam Neurological exam: Present: CN II-XII intact, oriented X3, no focal deficits. Absent: pronater drift, facial droop, speech deficit - Skin Skin exam: Present: dry, intact - Patient Status Disposition: Home Health Service Condition: Good Functional capacity at discharge: uses cane/walker Overall status at discharge: patient is progressing back to baseline - Discharge Instructions Follow Up With: Deacon Castro MD [Primary Care Provider] - - Diet and Activity Activity: ambulate only with your walker, as per physical therapy, increase activity as tolerated Diet: low fat, low cholesterol, low salt diet
--- NOTE | 2019-02-22 13:35 | Physician Discharge Referral ---
Home Health/Hosp Referral Info Transfer to: Home Health Provider in Charge Post Discharge: PCP - Diagnosis (1) CHF (congestive heart failure) Priority: Primary Status: Acute (2) CAD (coronary artery disease) Priority: Secondary Status: Chronic (3) Leukocytosis Priority: Secondary Status: Chronic (4) COPD (chronic obstructive pulmonary disease) with emphysema Priority: Secondary Status: Chronic - Respiratory Orders Oxygen / L per min (2 LPM NC and titrate to keep >88%) Smoking Cessation: Smoking cessation has been advised. For more information, call the [place] Tobacco Quit Line at 7-804-EFBQ-NOW. - Diet/Nutrition Diet/Nutrition Orders: No Added Salt (NEMO), Cardiac - Activity Activity Orders: Up ad [place], Walker - Services Needed Following services are medically necessary services: Nursing, Home Health Aide, Physical Therapy, Occupational Therapy - Transfer Medications Prescriptions: predniSONE [PredniSONE] See Taper PO DAILY #22 tablet Home Medications: ALPRAZolam [Xanax 1 MG Tablet] 1 mg PO BID PRN 02/10/19 [History] Albuterol Sulfate [Ventolin Hfa] 2 puff IH Q4H PRN 02/10/19 [History] Atorvastatin Calcium 80 mg PO DAILY 02/10/19 [History] Cholecalciferol (D-3) [Vitamin D] 2,000 unit PO DAILY 02/10/19 [History] Duloxetine HCl [Cymbalta] 60 mg PO BID 02/10/19 [History] Fluticasone Furoate [Arnuity Ellipta] 1 puff IH DAILY 02/10/19 [History] Ibuprofen [Ibu] 800 mg PO TID PRN 02/10/19 [History] Lactulose 30 ml PO BID PRN 02/10/19 [History] Metoprolol [Lopressor] 25 mg PO BID 02/10/19 [History] Montelukast [Singulair] 10 mg PO DAILY 02/10/19 [History] Multivitamin [Daily Multiple Vitamin] 1 each PO DAILY 02/10/19 [History] Nitroglycerin [Nitrostat] 0.4 mg SL Q5MIN PRN 02/10/19 [History] Omeprazole [PriLOSEC] 20 mg PO DAILY 02/10/19 [History] Spironolactone [Aldactone] 25 mg PO DAILY 02/10/19 [History] Tiotropium Br/Olodaterol HCl [Stiolto Respimat Inhal [place]] 2 puff IH DAILY 02/10/19 [History] predniSONE [PredniSONE] See Taper PO DAILY #22 tablet 02/21/19 [Rx] Allergies/Adverse Reactions: Allergy/AdvReac Type Severity Reaction Status Date / Time acetaminophen [From Vicodin] AdvReac Vomiting Verified 02/10/19 22:21 Amoxicillin [From Augmentin] AdvReac Abdominal Verified 02/10/19 22:21 Pain ciprofloxacin AdvReac Vomiting Verified 02/10/19 22:21 clavulanic acid AdvReac Abdominal Verified 02/10/19 22:21 [From Augmentin] Pain hydrocodone [From Vicodin] AdvReac Vomiting Verified 02/10/19 22:21 Certification: Further, I certify that my clinical findings support that this patient is homebound (i.e. absences from home require considerable and taxing effort and are for medical reasons or nondenominational services or infrequently or short duration when for other reasons) because: Homebound Reason: Leaving home requires considerable and taxing effort due to condition Attestation: My signature below is to certify that this patient is under my care and that I, or nurse practitioner, or a physician's medical assistant cardiology working with me, has a [id number] encounter with this patient.
== END 2019-02-21 13:32 | disposition home health service (06) | DRG 945 ==
LOC: INPGRE 19:43